=== PATIENT | male | born 1940 | race Asian ===

== ENCOUNTER 2018-12-09 23:08 | Emergency (ER) | payer OTHER ==
[~2018-12-09] VITALS: Ht 188 cm; Wt 62.1 kg
[2018-12-09 23:38] LABS: PLATELET COUNT 179 K/uL (142-355)
[2018-12-09 23:53] LABS: POTASSIUM 3.9 mmol/L (3.6-5.2)
[2018-12-10 01:05] VITALS: BP 127/70; TEMP 98.4
== END 2018-12-10 01:09 | disposition home or self-care (01) ==
LOC: ED 23:08 → EDBD 23:08 → ED 12-10 01:09
PROVIDERS: Emergency Medicine
DX: R56.9 Unspecified convulsions (principal)
CPT/HCPCS: 36415; 80053; 81000; 83735; 85027; 87502; 87651; 96372; 99283; J3475